=== PATIENT | female | born 1955 | race Two or more races ===

== ENCOUNTER → 2024-04-27 12:41 | Outpatient (REF) | payer OTHER, SELFPAY | LOC: HWRAD 12:41 | PROVIDERS: ATTENDING PHYSICIAN Family Medicine | DX: R10.813 Right lower quadrant abdominal tenderness (principal) | CPT/HCPCS: 74176 ==

== ENCOUNTER → 2025-01-01 12:55 | Outpatient (REF) | payer OTHER, SELFPAY | LOC: HWRAD 12:55 | PROVIDERS: ATTENDING PHYSICIAN Internal Medicine Nephrology; FAMILY PHYSICIAN Family Medicine | DX: R94.4 Abnormal results of kidney function studies (principal) | CPT/HCPCS: 76775 ==